=== PATIENT | male | born 1955 | race Caucasian/White ===

== ENCOUNTER 2019-10-16 11:24 | Outpatient (CLI) | payer OTHER | END 2019-10-16 23:59 | disposition home or self-care (01) | LOC: RAD 11:24 | PROVIDERS: ATTEND Student in an Organized Health Care Education/Training Program | DX: C61 Malignant neoplasm of prostate (principal) | CPT/HCPCS: 78306; A9503 ==

== ENCOUNTER → 2019-10-30 | Outpatient (CLI) | payer OTHER ==
[~2019-10-30] MED LIST: LANS15CA5 PO; LEVO25TA4 PO; METF500T17 PO; PRAM1TAB5 PO; TAMS-11 PO; TRAZ50TA66 PO; Vitamin D PO; magnesium PO; selenium PO; turmeric/curcumin PO; vitamin C PO; vitamin b complex PO
[2019-10-30 15:20] LABS: BASOPHILS # (AUTO) 0.02 x10^3/uL (0-0.1); BASOPHILS % (AUTO) 0 % (0-1); EOSINOPHILS # (AUTO) 0.07 x10^3/uL (0-0.4); EOSINOPHILS % (AUTO) 2 % (1-7); LYMPHOCYTES # (AUTO) 1.25 x10^3/uL (1-3.4); LYMPHOCYTES % (AUTO) 28 % (22-44); MD NO; MEAN CORPUSCULAR HEMOGLOBIN 30.5 pg (27.5-34.5); MEAN CORPUSCULAR HGB CONC 34.3 g/dL (33.2-36.2); MEAN PLATELET VOLUME 8.6 fL (7.4-10.4); MONOCYTES # (AUTO) 0.34 x10^3/uL (0.2-0.8); MONOCYTES % (AUTO) 8 % (2-9); NEUTROPHILS # (AUTO) 2.81 x10^3/uL (1.8-6.8); NEUTROPHILS % (AUTO) 63 % (42-75); PLATELET COUNT 174 x10^3/uL (130-400); RED BLOOD COUNT 5.39 x10^6/uL (4.38-5.82); RED CELL DISTRIBUTION WIDTH 13.6 % (9.4-14.8)
[2019-10-30 15:28] LABS: MICROSCOPIC NOT IND
[2019-10-30 15:31] LABS: ALANINE AMINOTRANSFERASE 76 U/L (12-78); ALBUMIN 4.4 g/dL (3.4-5.0); ANION GAP 7 mmol/L (5-15); CALCIUM 9.3 mg/dL (8.5-10.1); CHLORIDE 107 mmol/L (98-107); CREATININE 1.23 mg/dL (0.7-1.3)
[2019-10-30 15:33] LABS: ALKALINE PHOSPHATASE 81 U/L (45-117); BILIRUBIN,TOTAL 0.6 mg/dL (0.2-1.0); TOTAL PROTEIN 7.8 g/dL (6.4-8.2)
[2019-10-30 15:46] LABS: INTERNATIONAL NORMALIZED RATIO 0.96 (0.93-1.1); PROTHROMBIN TIME 10.2 Seconds (9.6-11.5)
== END | disposition home or self-care (01) ==
LOC: STAR 14:01
PROVIDERS: ATTEND Student in an Organized Health Care Education/Training Program
DX: Z01.818 Encounter for other preprocedural examination (principal); Q79.2 Exomphalos
CPT/HCPCS: 36415; 80053; 81003; 83036; 85025; 85610; 87086; 93005

== ENCOUNTER 2019-11-07 10:02 | Observation (INO) | payer OTHER ==
[~2019-11-07] VITALS: Ht 170.2 cm; Wt 111.0 kg
[2019-11-07] MEDS ORDERED: SUCCINYLCHOLINE 20 MG/ML, 10ML ONE (10:22)
[2019-11-07] MEDS ORDERED: DEXAMETHASONE 4 MG/ML, 1ML ONE (10:22)
[2019-11-07] MEDS ORDERED: ONDANSETRON 2MG/ML, 2ML ONE (10:22)
[2019-11-07] MEDS ORDERED: LACTATED RINGERS 1,000 ML IV SCH (10:22)
[2019-11-07] MEDS ORDERED: PROPOFOL 10 MG/ML, 20ML ONE (10:22)
[2019-11-07] MEDS ORDERED: ROCURONIUM 10MG/ML,5ML ONE (10:22)
[2019-11-07] MEDS ORDERED: CEFAZOLIN 1,000 MG ONE (10:22)
[2019-11-07] MEDS ORDERED: MIDAZOLAM 1 MG/ML, 2ML ONE (11:32)
[2019-11-07] MEDS ORDERED: FENTANYL PF 250 MCG/5ML ONE (11:32)
[2019-11-07] MEDS ORDERED: INDIGO CARMINE 0.8%, 5ML ONE (12:24)
[2019-11-07] MEDS ORDERED: BUPIVACAINE/PF 0.25% ONE (12:24)
[2019-11-07] MEDS ORDERED: OPIUM/BELLADONNA SUPP.RECT 16.2-60 MG ONE (12:24)
[2019-11-07] MEDS ORDERED: EPINEPHRINE 1 MG/ML, 1ML ONE (12:24)
[2019-11-07] MEDS ORDERED: MEPERIDINE/PF 25MG/ML,1ML ONE (18:57)
[2019-11-07] MEDS ORDERED: ONDANSETRON 2MG/ML, 2ML IV PRN ×2 (19:00→19:30)
[2019-11-07] MEDS ORDERED: MEPERIDINE/PF 25MG/ML,1ML IVPush PRN (19:00)
[2019-11-07] MEDS ORDERED: HYDROmorphone 1 MG/ML, 1ML INJ IV PRN (19:00)
[2019-11-07] MEDS ORDERED: OXYcodone 5 MG/5 ML ORAL.SOL UDC ONE (19:23)
[2019-11-07] MEDS ORDERED: FENTANYL PF 100 MCG/2ML ONE (19:23)
[2019-11-07] MEDS: FENTANYL PF 100 MCG/2ML IV PRN ×3 (19:26→19:42)
[2019-11-07 19:29] LABS: ALBUMIN 3.9 g/dL (3.4-5.0); ANION GAP 9 mmol/L (5-15); CALCIUM 8.7 mg/dL (8.5-10.1); CHLORIDE 107 mmol/L (98-107); CREATININE 1.42 mg/dL (0.7-1.3)
[2019-11-07] MEDS ORDERED: OXYcodone 5 MG/5 ML ORAL.SOL UDC PO PRN (19:30)
[2019-11-07] MEDS ORDERED: HYDROmorphone 2 MG/ML, 1ML IVPush PRN (19:30)
[2019-11-07] MEDS ORDERED: PROMETHAZINE 25 MG/ML, 1ML IV PRN (19:30)
[2019-11-07] MEDS ORDERED: hydrALAzine 20 MG/ML, 1ML IV PRN (19:30)
[2019-11-07] MEDS ORDERED: METOPROLOL 1 MG/ML, 5ML IV PRN (19:30)
[2019-11-07] MEDS ORDERED: hydrALAzine 20 MG/ML, 1ML ONE (19:35)
[2019-11-07] MEDS ORDERED: HYDROmorphone 1 MG/ML, 1ML INJ ONE (19:48)
[2019-11-07 20:30] VITALS: BP 144/84
[2019-11-07] MEDS ORDERED: TRAZODONE 50MG TABLET PO SCH (21:00)
[2019-11-07] MEDS ORDERED: PRAMIPEXOLE 0.5MG TABLET PO SCH (21:00)
[2019-11-07] MEDS: ACETAMINOPHEN 325 MG TABLET PO SCH (21:16)
[2019-11-07] MEDS: DOCUSATE 100 MG CAPSULE PO SCH (21:51)
[2019-11-07] MEDS: CEFAZOLIN PMX 1GM/50ML 50 ML IVPB SCH (21:52)
[2019-11-07] MEDS: SODIUM CHLORIDE 0.9% 1,000 ML IV SCH (21:53)
[2019-11-08 00:39] VITALS: BP 125/78
[2019-11-08] MEDS: ACETAMINOPHEN 325 MG TABLET PO SCH ×2 (01:51→09:56)
[2019-11-08 04:13] VITALS: BP 121/73
[2019-11-08 05:35] LABS: ANION GAP 7 mmol/L (5-15); CHLORIDE 106 mmol/L (98-107)
[2019-11-08] MEDS: CEFAZOLIN PMX 1GM/50ML 50 ML IVPB SCH (05:59)
[2019-11-08] MEDS ORDERED: LEVOTHYROXINE 150 MCG TABLET PO SCH (06:00)
[2019-11-08] MEDS: SODIUM CHLORIDE 0.9% 1,000 ML IV SCH ×2 (06:00→13:30)
[2019-11-08] MEDS ORDERED: PANTOPROZOLE 40MG TABLET PO SCH (06:00)
[2019-11-08] MEDS: OXYcodone 5 MG/5 ML ORAL.SOL UDC PO PRN ×2 (06:06→12:45)
[2019-11-08 06:46] VITALS: BP 142/83
[2019-11-08] MEDS ORDERED: HEPARIN 5,000 UNITS/ML, 1ML SQ SCH (08:00)
[2019-11-08] MEDS ORDERED: POLYETHYLENE GLYCOL 17 GM PACKET PO SCH (09:00)
[2019-11-08] MEDS: DOCUSATE 100 MG CAPSULE PO SCH (09:55)
[2019-11-08] MEDS ORDERED: OXYC-302 PO (15:54)
== END 2019-11-08 16:51 | disposition home or self-care (01) ==
LOC: OUT 10:02 → 4NE 20:35 → OUT 20:51 → 4NE 21:20 → DCLOUNGE 11-08 16:26
PROVIDERS: ADMIT Surgery; ATTEND Surgery
DX: C61 Malignant neoplasm of prostate (principal); K42.9 Umbilical hernia without obstruction or gangrene; I10 Essential (primary) hypertension; E78.5 Hyperlipidemia, unspecified; E11.9 Type 2 diabetes mellitus without complications; E03.9 Hypothyroidism, unspecified; Z79.899 Other long term (current) drug therapy; Z88.0 Allergy status to penicillin
CPT/HCPCS: 36415; 49585; 55866; 74018; 80048; 82040; 82962; 85014; 86850; 86900; 88305; 88309; 96365; 96366; 96372; 96375; C1729; C1760; C1781; G0378; J0171; J0330; J0360; J0690; J1100; J1170; J1644; J2175; J2250; J2405; J2704; J3010; J3490; J7030; S2900

== ENCOUNTER → 2019-11-14 | Outpatient (CLI) | payer OTHER ==
[~2019-11-14] MED LIST changes: +CYSTO CONRAY II 250 ML VIAL UR ONE; +OXYC-302 PO
== END | disposition home or self-care (01) ==
LOC: RAD 08:16
PROVIDERS: ATTEND Student in an Organized Health Care Education/Training Program
DX: C61 Malignant neoplasm of prostate (principal); M51.36 Other intervertebral disc degeneration, lumbar region; M41.86 Other forms of scoliosis, lumbar region
CPT/HCPCS: 74430; Q9958

== ENCOUNTER → 2020-02-21 | Outpatient (CLI) | payer OTHER ==
[~2020-02-21] MED LIST changes: +ATOR20TA37 PO; +CHOL10003 PO; -CYSTO CONRAY II 250 ML VIAL UR ONE; +LIPOSOMAL VIT C PO; +LOSA1TAB25 PO; +MAGN500C9 PO; +SELE200T17 PO; +VITA1TAB3 PO
[2020-02-21 12:21] LABS: ALANINE AMINOTRANSFERASE 86 U/L (12-78); ANION GAP 6 mmol/L (5-15); CHLORIDE 107 mmol/L (98-107)
[2020-02-21 12:24] LABS: ALKALINE PHOSPHATASE 82 U/L (45-117); BILIRUBIN,TOTAL 0.6 mg/dL (0.2-1.0); CREATININE 1.02 mg/dL (0.7-1.3); TOTAL PROTEIN 7.3 g/dL (6.4-8.2)
== END | disposition home or self-care (01) ==
LOC: STAR 10:57
PROVIDERS: ATTEND Internal Medicine
DX: Z01.818 Encounter for other preprocedural examination (principal); Z11.59 Encounter for screening for other viral diseases; Z88.1 Allergy status to other antibiotic agents
CPT/HCPCS: 36415; 80053; 93005; U0001

== ENCOUNTER 2020-02-25 09:14 | Day surgery (SDC) | payer OTHER ==
[~2020-02-25] VITALS: Ht 170.2 cm; Wt 107.4 kg
[2020-02-25] MEDS ORDERED: CHLORHEXIDINE 15 ML UDC MM ONE (10:00)
[2020-02-25 10:02] VITALS: BP 162/107
[2020-02-25 10:25] VITALS: BP 161/98
[2020-02-25] MEDS ORDERED: FENTANYL PF 100 MCG/2ML ONE (10:51)
[2020-02-25] MEDS ORDERED: PROPOFOL 10 MG/ML, 20ML ONE ×2 (10:52→11:23)
[2020-02-25] MEDS ORDERED: LIDOCAINE-MPF 2% ,5ML ONE (10:52)
[2020-02-25] MEDS ORDERED: LIDOCAINE 4%, 4 ML SYR/CANN TP ONE (10:52)
[2020-02-25] MEDS ORDERED: FENTANYL PF 100 MCG/2ML IV PRN (11:00)
[2020-02-25] MEDS ORDERED: LACTATED RINGERS 1,000 ML IV SCH (11:00)
[2020-02-25] MEDS ORDERED: ONDANSETRON 2MG/ML, 2ML IVPush PRN (11:00)
[2020-02-25] MEDS ORDERED: DIPHENHYDRAMINE 50 MG/ML, 1ML IVPush PRN (11:00)
== END 2020-02-25 12:35 | disposition home or self-care (01) ==
LOC: OUT 09:14
PROVIDERS: ATTEND Internal Medicine
DX: K31.7 Polyp of stomach and duodenum (principal); E11.9 Type 2 diabetes mellitus without complications; I10 Essential (primary) hypertension; E78.5 Hyperlipidemia, unspecified; K21.9 Gastro-esophageal reflux disease without esophagitis; N40.0 Benign prostatic hyperplasia without lower urinary tract symptoms; Z79.84 Long term (current) use of oral hypoglycemic drugs; Z79.890 Hormone replacement therapy; Z79.899 Other long term (current) drug therapy; Z88.0 Allergy status to penicillin; Z91.041 Radiographic dye allergy status; Z85.46 Personal history of malignant neoplasm of prostate
CPT/HCPCS: 43251; 82962; 88305; J2704; J3010; J7120

== ENCOUNTER 2021-01-01 18:55 | Emergency (ER) | payer MEDICARE, OTHER ==
[~2021-01-01] VITALS: Ht 170.2 cm; Wt 103.2 kg
[~2021-01-01 18:55] MED LIST changes: -OXYC-302 PO; +OXYC1TAB14 PO
[2021-01-01 18:59] VITALS: BP 156/89
[2021-01-01] MEDS ORDERED: DIAZEPAM 5 MG TABLET ONE (19:25)
[2021-01-01] MEDS ORDERED: KETOROLAC 30 MG/1 ML ONE (19:26)
[2021-01-01] MEDS ORDERED: KETOROLAC 30 MG/1 ML IM ONE (20:30)
[2021-01-01] MEDS ORDERED: DIAZEPAM 5 MG TABLET PO/NG ONE (20:30)
== END 2021-01-01 20:21 | disposition home or self-care (01) ==
LOC: ED 20:15
DX: M54.5 Low back pain (principal)
CPT/HCPCS: 96372; 99283; J1885